=== PATIENT | male | born 1995 | race African-American/Black ===

== ENCOUNTER 2016-11-14 07:41 | Emergency (ER) | payer SELFPAY ==
[~2016-11-14] VITALS: Ht 182.9 cm; Wt 102.0 kg
[2016-11-14] MEDS ORDERED: SODIUM CHLORIDE 0.9% 1,000 ML IV ONE (07:54)
[2016-11-14 08:28] LABS: BASOPHILS % 0.9 % (0.0-2.0); EOSINOPHILS % 4.7 % (0.0-5.0); HEMATOCRIT. 48.5 % (42.0-52.0); HEMOGLOBIN. 16.2 g/dL (14.0-18.0); LYMPHOCYTES % 40.4 % (20.0-50.0); MEAN CORPUSCULAR HEMOGLOBIN 29.3 pg (28.0-32.0); MEAN CORPUSCULAR VOLUME 87.6 fL (80.0-94.0); MEAN PLATELET VOLUME 8.7 fl (7.4-10.4); MONOCYTES % 6.4 % (2.0-8.0); NEUTROPHILS % 47.6 % (40.0-76.0); PLATELET 262 x1000/uL (130-400); RED BLOOD CELL COUNT 5.54 mill/uL (4.7-6.1); RED CELL DISTRIBUTION WIDTH 13.8 % (11.6-14.6)
[2016-11-14 08:36] LABS: PROTHROMBIN TIME 10.1 sec (9.4-11.6)
[2016-11-14 08:37] LABS: CHLORIDE 104 mEq/L (98-107)
[2016-11-14 08:47] LABS: CARBON DIOXIDE 18 mEq/L (21-32); PHENYTOIN 1.3 ug/mL (10-20)
[2016-11-14 08:49] LABS: CARBAMAZEPINE < 0.5 ug/mL (4-12); PHENOBARBITAL < 2.1 ug/mL (15.0-40.0); VALPROIC ACID < 3.0 ug/mL (50-100)
[2016-11-14] MEDS ORDERED: SODIUM CHLORIDE 0.9% 1000ML BAG (SEPSIS BOLUS) IV ONE (09:00)
[2016-11-14] MEDS ORDERED: PHENYTOIN SODIUM 1,000 MG in SODIUM CHLORIDE 0.9% 100 ML IV SCH (09:00)
[2016-11-14 09:30] LABS: CLARITY URINE CLEAR (CLEAR); COLOR URINE YELLOW (YELLOW); GLUCOSE URINE NEGATIVE (NEGATIVE); KETONES URINE NEGATIVE (NEGATIVE); LEUKOCYTE ESTERASE URINE NEGATIVE (NEGATIVE); NITRITE URINE NEGATIVE (NEGATIVE); OCCULT BLOOD URINE 1+ (NEGATIVE); PROTEIN URINE TRACE (NEGATIVE); SPECIFIC GRAVITY URINE 1.017 (1.005-1.030); UROBILINOGEN URINE 0.2 E.U./dL (0.2-1.0)
[2016-11-14] MEDS ORDERED: ACETAMINOPHEN 325MG TABLET PO ONE (11:00)
[2016-11-14 11:50] VITALS: BP 142/77
== END 2016-11-14 11:50 | disposition home or self-care (01) ==
LOC: ER 07:51
DX: R56.9 Unspecified convulsions (principal); E87.2 Acidosis; E86.0 Dehydration
CPT/HCPCS: 36415; 70450; 71010; 80053; 80156; 80165; 80184; 80185; 81001; 83605; 85025; 85610; 96361; 96365; 99285; J1165; J7030; Z7610; J7050; A4315